=== PATIENT | male | born 1990 | race Caucasian/White ===

== ENCOUNTER 2018-10-05 15:28 | Emergency (ER) | payer OTHER ==
[2018-10-05] MEDS ORDERED: NS 1,000 ML IV ONE ×2 (15:43→16:53)
--- NOTE | 2018-10-05 15:46 | EDPHY ---
H & P Stated Complaint: Weight loss, polyurea, polydipsia, high glucose, no Dx. Time Seen by Provider: 10/05/18 15:42 HPI/ROS: CHIEF COMPLAINT: Abnormal lab HISTORY OF PRESENT ILLNESS: Patient is a 28-year-old man who comes to the emergency department for [facility] complaining of an abnormal lab. He states that he has had weight loss over the last 3 months as well as polydipsia and polyuria. They obtained a hemoglobin A1c at the clinic that was 14. They recommended he come to the ER. He states that he is otherwise asymptomatic acutely. No vomiting. No abdominal pain. No fatigue or lethargy. No fever. Severity: Moderate Modifying factors: None REVIEW OF SYSTEMS: Constitutional: denies: chills, fever, recent illness, recent injury EENTM: denies: blurred vision, double vision, nose congestion Respiratory: denies: cough, shortness of breath Cardiac: denies: chest pain, irregular heart rate, lightheadedness, palpitations Gastrointestinal/Abdominal: denies: abdominal pain, diarrhea, nausea, vomiting, blood streaked stools Genitourinary: See HPI denies: dysuria, frequency, hematuria, pain Musculoskeletal: See HPI denies: joint pain, muscle pain Skin: denies: lesions, rash, jaundice, bruising Neurological: denies: headache, numbness, paresthesia, tingling, dizziness, weakness Hematologic/Lymphatic: denies: blood clots, easy bleeding, easy bruising Immunologic/allergic: denies: HIV/AIDS, transplant 10 systems reviewed and negative except as noted EXAM: GENERAL: Thin and in no acute distress. HEAD: Atraumatic, normocephalic. EYES: Pupils equal round and reactive to light, extraocular movements intact, sclera anicteric, conjunctiva are normal. ENT: TMs normal, nares patent, oropharynx clear without exudates. Moist mucous membranes. NECK: Normal range of motion, supple without lymphadenopathy or JVD. LUNGS: Breath sounds clear to auscultation bilaterally and equal. No wheezes rales or rhonchi. HEART: Regular rate and rhythm without murmurs, rubs or gallops. ABDOMEN: Soft, nontender, normoactive bowel sounds. No guarding, no rebound. No masses appreciated. BACK: No CVA tenderness, no spinal tenderness, step-offs or deformities EXTREMITIES: Normal range of motion, no pitting or edema. No clubbing or cyanosis. NEUROLOGICAL: Cranial nerves II through XII grossly intact. Normal speech, normal gait. 5/5 strength, normal movement in all extremities, normal sensation , normal reflexes PSYCH: Normal mood, normal affect. SKIN: Warm, dry, normal turgor, no visible rashes or lesions. Source: Patient Exam Limitations: No limitations - Personal History Current Tetanus/Diphtheria Vaccine: Unsure - Medical/Surgical History Hx Asthma: No Hx Chronic Respiratory Disease: No Hx Diabetes: No Hx Cardiac Disease: No Hx Renal Disease: No Hx Cirrhosis: No Hx Alcoholism: No Hx HIV/AIDS: No Hx Splenectomy or Spleen Trauma: No Other PMH: none - Family History Significant Family History: No pertinent family hx - Social History Smoking Status: Former smoker Alcohol Use: Sober Drug Use: None Constitutional: Initial Vital Signs Temperature (C) 36.5 C 10/05/18 15:35 Heart Rate 104 H 10/05/18 15:35 Respiratory Rate 18 10/05/18 15:35 Blood Pressure 137/80 H 10/05/18 15:35 O2 Sat (%) 94 10/05/18 15:35 O2 Delivery Mode Room Air Allergies/Adverse Reactions: No Known Allergies Allergy (Unverified 10/05/18 15:35) Home Medications: Medication Instructions Recorded Insulin Glargine [Lantus] 10 unit SC HS #1 ml 10/05/18 Medical Decision Making ED Course/Re-evaluation: 4:50 p.m. the patient's glucose is significantly elevated but he is not in DKA. He has received a L of fluid. Will give a 2nd L as well as 5 of IV insulin and recheck his glucose. I did offer admission primarily for diabetic teaching. The patient would prefer to avoid admission because he is currently uninsured and a student. I curb sided the hospitalist service and they agree that it is reasonable to discharge him as long as he can follow up with endocrinology relatively soon and maybe start him on a small dose of insulin initially. I have paged Endocrinology service however they are not production line worker. I spoke with Dr. Lowe from [facility] and he agrees that it is safe for the patient to go home and recommends that we simply start him on a low dose of Lantus every evening such as 10 units at bedtime. He also recommends that if the patient is able to learn had a check his own blood pressure that would also be helpful. They will see him in the next day or 2 in their clinic for further teaching and medication adjustments. The patient is concerned because he does not have insurance but Dr. Lowe states that this is a [facility] and they caterer towards people who do not have insurance. 6:20 p.m. the patient's glucose has decreased appropriately. He feels well. Will give initial dose of Lantus and continue to observe for another hour. Will teach him. Will allow him to eat. Will then take fingerstick show him this as well. 8:30 p.m. the patient's glucose is remained stable. He is eating. He has been given Lantus. He will follow up with the Endocrinology Clinic tomorrow or the next day. He feels comfortable going home at this time. We discussed indications for returning. Differential Diagnosis: Partial list of the Differential diagnosis considered include but were not limited to; hyperglycemia, diabetes, DKA and although unlikely based on the history and physical exam, I also considered infection, hyperosmolar. - Data Points Laboratory Results: Laboratory Results 10/05/18 15:50 10/05/18 15:50 10/05/18 10/05/18 10/05/18 20:22 18:14 16:55 WBC RBC Hgb Hct MCV MCH MCHC RDW Plt Count MPV Neut % (Auto) Lymph % (Auto) [place] % (Auto) Eos % (Auto) Baso % (Auto) Nucleat RBC Rel Count Absolute Neuts (auto) Absolute Lymphs (auto) Absolute Monos (auto) Absolute Eos (auto) Absolute Basos (auto) Absolute Nucleated RBC Immature Gran % Immature Gran # Sodium Potassium Chloride Carbon Dioxide Anion Gap BUN Creatinine Estimated GFR Glucose POC Glucose 305 mg/dL H mg/dL 176 mg/dL H mg/dL (70-100) (70-100) Calcium Phosphorus Magnesium Total Bilirubin Conjugated Bilirubin Unconjugated Bilirubin AST ALT Alkaline Phosphatase Total Protein Albumin Urine Color PALE YELLOW Urine Appearance CLEAR Urine pH 5.0 (5.0-7.5) Ur Specific [place] 1.033 H (1.002-1.030) Urine Protein NEGATIVE (NEGATIVE) Urine Ketones 2+ H (NEGATIVE) Urine Blood NEGATIVE (NEGATIVE) Urine Nitrate NEGATIVE (NEGATIVE) Urine Bilirubin NEGATIVE (NEGATIVE) Urine Urobilinogen NEGATIVE EU EU (0.2-1.0) Ur Leukocyte Esterase NEGATIVE (NEGATIVE) Urine RBC 1-3 /hpf /hpf (0-3) Urine WBC 1-3 /hpf /hpf (0-3) Ur Epithelial Cells NONE SEEN /lpf /lpf (NONE-1+) Urine Mucus TRACE /lpf /lpf (NONE-1+) Urine Glucose 3+ H (NEGATIVE) 10/05/18 10/05/18 15:50 15:50 WBC 8.56 10^3/uL 10^3/uL (3.80-9.50) RBC 5.68 10^6/uL 10^6/uL (4.40-6.38) Hgb 16.5 g/dL g/dL (13.7-17.5) Hct 47.1 % % (40.0-51.0) MCV 82.9 fL fL (81.5-99.8) MCH 29.0 pg pg (27.9-34.1) MCHC 35.0 g/dL g/dL (32.4-36.7) RDW 12.5 % % (11.5-15.2) Plt Count 270 10^3/uL 10^3/uL (150-400) MPV 10.3 fL fL (8.7-11.7) Neut % (Auto) 66.0 % % (39.3-74.2) Lymph % (Auto) 27.0 % % (15.0-45.0) [place] % (Auto) 5.3 % % (4.5-13.0) Eos % (Auto) 0.7 % % (0.6-7.6) Baso % (Auto) 0.6 % % (0.3-1.7) Nucleat RBC Rel Count 0.0 % % (0.0-0.2) Absolute Neuts (auto) 5.66 10^3/uL 10^3/uL (1.70-6.50) Absolute Lymphs (auto) 2.31 10^3/uL 10^3/uL (1.00-3.00) Absolute Monos (auto) 0.45 10^3/uL 10^3/uL (0.30-0.80) Absolute Eos (auto) 0.06 10^3/uL 10^3/uL (0.03-0.40) Absolute Basos (auto) 0.05 10^3/uL 10^3/uL (0.02-0.10) Absolute Nucleated RBC 0.00 10^3/uL 10^3/uL (0-0.01) Immature Gran % 0.4 % % (0.0-1.1) Immature Gran # 0.03 10^3/uL 10^3/uL (0.00-0.10) Sodium 133 mEq/L L mEq/L (135-145) Potassium 4.4 mEq/L mEq/L (3.5-5.2) Chloride 98 mEq/L mEq/L (97-110) Carbon Dioxide 22 mEq/l mEq/l (22-31) Anion Gap 13 mEq/L mEq/L (6-14) BUN 24 mg/dL H mg/dL (7-23) Creatinine 0.8 mg/dL mg/dL (0.7-1.3) Estimated GFR > 60 Glucose 519 mg/dL H* mg/dL (70-100) POC Glucose Calcium 9.3 mg/dL mg/dL (8.5-10.4) Phosphorus 4.7 mg/dL H mg/dL (2.5-4.5) Magnesium 1.7 mg/dL mg/dL (1.6-2.3) Total Bilirubin 0.9 mg/dL mg/dL (0.1-1.4) Conjugated Bilirubin 0.4 mg/dL mg/dL (0.0-0.5) Unconjugated Bilirubin 0.5 mg/dL mg/dL (0.0-1.1) AST 24 IU/L IU/L (17-59) ALT 46 IU/L IU/L (21-72) Alkaline Phosphatase 172 IU/L H IU/L (38-126) Total Protein 6.6 g/dL g/dL (6.3-8.2) Albumin 4.1 g/dL g/dL (3.5-5.0) Urine Color Urine Appearance Urine pH Ur Specific [place] Urine Protein Urine Ketones Urine Blood Urine Nitrate Urine Bilirubin Urine Urobilinogen Ur Leukocyte Esterase Urine RBC Urine WBC Ur Epithelial Cells Urine Mucus Urine Glucose Medications Given: Discontinued Medications Sodium Chloride (Ns) 1,000 mls @ 0 mls/hr IV ONCE ONE; Wide Open PRN Reason: Protocol Stop: 10/05/18 15:44 Last Admin: 10/05/18 15:47 Dose: 1,000 mls Sodium Chloride (Ns) 1,000 mls @ 0 mls/hr IV ONCE ONE; Wide Open PRN Reason: Protocol Stop: 10/05/18 16:54 Last Admin: 10/05/18 17:00 Dose: 1,000 mls Insulin Glargine (Lantus Syringe) 10 units SC HS ONE Stop: 10/05/18 18:25 Last Admin: 10/05/18 19:03 Dose: 10 units Insulin Human Regular (Humulin R) 5 unit IVP EDNOW ONE Stop: 10/05/18 16:54 Last Admin: 10/05/18 16:59 Dose: 5 units Point of Care Test Results: Chemistry 10/05/18 10/05/18 20:22 18:14 POC Glucose 305 mg/dL H mg/dL 176 mg/dL H mg/dL (70-100) (70-100) Departure - Departure Disposition: Home, Routine, Self-Care Condition: Fair Instructions: Type 1 Diabetes in Adults: New Diagnosis (ED) Additional Instructions: Taking Lantus every evening and check your glucose 3 times a day and follow up with the salvage supervisor as discussed within the next couple of days. Referrals: NONE *PRIMARY CARE P,. [Primary Care Provider] - As per Instructions Cesar Lowe MD [Medical Doctor] - 1-2 days without fail Prescriptions: Insulin Glargine [Lantus] 10 unit SC HS #1 ml
[2018-10-05 16:01] LABS: PLATELET COUNT 270 10^3/uL (150-400)
[2018-10-05] MEDS ORDERED: INSULIN REGULAR HUMAN 100 UNIT/ML UNIT IVP ONE (16:53)
[2018-10-05] MEDS ORDERED: INSULIN GLARGINE 100 UNITS/ML UNIT SC ONE (18:24)
[2018-10-05 20:38] VITALS: BP 108/61
--- NOTE | 2018-10-06 10:30 | ASMTCMCOM ---
CM Note CM Note Notes: Late entry from 10/05/17: Pt presented to the ED after being recommended to come in by [facility] at re:his recent lab results being abnormal. Pt has a new diagnosis of Type 1 DM in Adults. CM was requested to assist w/ensuring pt gets a followup appt juan pablo. Followed up today and spoke w/staff at [facility]; they said pt could call in and schedule an appt for as early as this afternoon but either way they will get him scheduled in the next couple of days. Called pt and relayed info; pt states he has already been in contact with [facility] and they are also assisting him w/getting an appt w/an Credit Analysis Manager within his insurance's network. Pt states he plans on being seen at [facility] either today or tomorrow to review his new diagnosis, insulin administration and BGL checks. CM available for further assistance if needed. Date Signed: 10/06/2018 10:27 AM Electronically Signed By:Elissa Melendrez RN
== END 2018-10-05 20:59 | disposition home or self-care (01) ==
DX: R63.4 Abnormal weight loss (principal); E10.9 Type 1 diabetes mellitus without complications; E86.9 Volume depletion, unspecified
CPT/HCPCS: 96374; J1815